=== PATIENT | female | born 1985 | race Caucasian/White ===

== ENCOUNTER 2022-01-30 10:45 | Emergency (ER) | payer OTHER, SELFPAY ==
[2022-01-30 10:52] VITALS: BP 129/83; PULSE 70; RESP 18; TEMP 36.7; O2SAT 100
--- NOTE | 2022-01-30 11:03 | ED.URI ---
HPI - URI/Sore Throat General Chief Complaint: Upper Respiratory Infection Stated Complaint: head rishabh,cough,wheezing Time Seen by Provider: 01/30/22 10:52 Source: patient and RN notes reviewed Mode of arrival: ambulatory Limitations: no limitations History of Present Illness HPI Narrative: 36-year-old female presented for complaint of sinus pressure and congestion worsening over the past 2 weeks. She been taking Sudafed and Mucinex, using Karval pot with minimal relief in symptoms. Pain is located behind the right eye, right upper teeth and ear. 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 Denies associated cough, shortness of breath, nausea, vomiting, diarrhea, fever or chills. MD elicited complaint: cough Related Data Home Medications Medication Instructions Recorded Confirmed alprazolam 1 mg PO DAILY PRN 01/30/22 01/30/22 atorvastatin 20 mg PO DAILY 01/30/22 01/30/22 fluoxetine 40 mg PO DAILY 01/30/22 01/30/22 linaclotide [Linzess] 72 mcg PO DAILY 01/30/22 01/30/22 Allergies Allergy/AdvReac Type Severity Reaction Status Date / Time No Known Allergies Allergy Unverified 01/30/22 10:59 Review of Systems Review of Systems: CONSTITUTIONAL: Endorses malaise, chills, sweats, fever EYES: Denies visual changes, redness, or discharge ENT: Reports rhinorrhea, congestion, sinus pain, otalgia, sore throat CARDIOVASCULAR: Denies chest pain, palpitations, edema RESPIRATORY: Reports cough, post nasal drainage. Denies dyspnea GASTROINTESTINAL: Denies abdominal pain, nausea, vomiting, diarrhea SKIN: Denies rash or itching MUSCULOSKELETAL: Endorses myalgia NEUROLOGIC: Denies headache Exam Narrative: GENERAL: Ill-appearing, nontoxic no acute distress. HEAD: Normocephalic EYES: PERRLA, conjunctivae clear ENT: Mucous membranes moist. TMs with dull light reflex bilaterally; no tragal tenderness. Oropharynx erythematous without lesions or exudate, no drooling, no hoarseness, no trismus, uvula midline. NECK: Supple. No lymphadenopathy CHEST: Clear to auscultation, breath sounds equal. No wheezing, rhonchi, rales, or stridor. No respiratory distress, speaks in full sentences. HEART: Regular rate and rhythm. No murmur heard. SKIN: Warm, dry, no rash. NEURO: Alert and oriented x3. PSYCH: Normal mood and affect Course Course Emergency Course: Patient is aware of diagnosis, understands and agrees to treatment plan. Anticipatory guidance given. Patient agrees to follow-up as directed and is aware of reasons to seek care at the emergency department. Portions of this record may have been created with voice recognition software Level of Care: Express Care Visit Vital Signs Vital signs: Vital Signs Temperature 98.1 F 01/30/22 10:52 Pulse Rate 70 01/30/22 10:52 Respiratory Rate 18 01/30/22 10:52 Blood Pressure 129/83 01/30/22 10:52 Pulse Oximetry 100 01/30/22 10:52 Temperature 98.1 F 01/30/22 10:52 Pulse Rate 70 01/30/22 10:52 Respiratory Rate 18 01/30/22 10:52 Blood Pressure 129/83 01/30/22 10:52 Pulse Oximetry 100 01/30/22 10:52 reviewed MDM - URI/Sore Throat MDM Narrative Medical decision making narrative: Presentation c/w bacterial sinusitis. No indication for covid or flu. No respiratory distress, otherwise relatively well appearing and nontoxic. Will discuss prompt follow up with PMD and strict return precautions. Differential Diagnosis Differential diagnosis: Likely upper respiratory infection, sinusitis and viral infection Discharge Plan Discharge Clinical Impression: Sinusitis Qualifiers: Sinusitis location: maxillary Chronicity: acute Recurrence: non-recurrent Qualified Code(s): J01.00 - Acute maxillary sinusitis, unspecified Patient Disposition: Home, Self-Care Condition: Stable Instructions: Antibiotic Form, Rhinosinusitis (ED) Additional Instructions: Take antibiotic as directed Recommend Flonase spray and Zyrtec
== END 2022-01-30 11:10 | disposition home or self-care (01) ==
PROVIDERS: Emergency Provider Nurse Practitioner Family; PCP Internal Medicine
DX: J01.00 Acute maxillary sinusitis, unspecified (principal); E78.00 Pure hypercholesterolemia, unspecified; J45.909 Unspecified asthma, uncomplicated; F41.9 Anxiety disorder, unspecified; F32.A Depression, unspecified
CPT/HCPCS: 99203; G0463

== ENCOUNTER 2023-04-18 19:26 | Emergency (ER) | payer OTHER, SELFPAY ==
[2023-04-18 19:31] VITALS: BP 117/94; PULSE 99; RESP 16; TEMP 36.5; O2SAT 100
--- NOTE | 2023-04-18 19:38 | ED.URI ---
HPI - URI/Sore Throat General Chief Complaint: Upper Respiratory Infection Stated Complaint: poss pink eye/throat Source: patient and RN notes reviewed Limitations: no limitations History of Present Illness HPI Narrative: Patient is a 37-year-old female who presents to the [facility] with multiple complaints. Patient states that she woke up this morning with left eye redness and drainage. She reports purulent drainage of the eye upon waking. Patient also reports sore throat for the past couple days. She also reports nasal congestion and a frequent nonproductive cough that is present at night. She denies recent fevers or chills. Denies chest pain or shortness of breath. Denies abdominal pain, nausea, vomiting, diarrhea. Related Data Home Medications Medication Instructions Recorded Confirmed alprazolam 1 mg tablet 1 mg PO DAILY PRN Anxiety 01/30/22 01/30/22 atorvastatin 20 mg tablet 20 mg PO DAILY 01/30/22 01/30/22 fluoxetine 40 mg capsule 40 mg PO DAILY 01/30/22 01/30/22 linaclotide 72 mcg capsule 72 mcg PO DAILY 01/30/22 01/30/22 (Linzess) hydrocodone 5 mg-acetaminophen 325 tablet 04/18/23 mg tablet Allergies Allergy/AdvReac Type Severity Reaction Status Date / Time No Known Allergies Allergy Unverified 01/30/22 10:59 Review of Systems Review of Systems: CONSTITUTIONAL: Denies fever, chills, or sweats. EYES: Denies visual changes. Reports left eye redness and drainage. ENT: Reports nasal congestion/drainage. Reports sore throat. CARDIOVASCULAR: Denies chest pain, palpitations, or edema. RESPIRATORY: Reports cough. Denies dyspnea. GASTROINTESTINAL: Denies abdominal pain, nausea, vomiting, or diarrhea. GENITOURINARY: Denies dysuria or hematuria. SKIN: Denies rash or itching. MUSCULOSKELETAL: Denies back pain, joint pain, or myalgia. NEUROLOGIC: Denies headache, numbness, or weakness. Pertinent positives per HPI. PMFSH Comments At the time of my signature, I reviewed and agree with the nursing past medical, surgical, social, and family history. There is no relevant family history pertinent to the patient complaint. Exam Narrative: GENERAL: This is a well-nourished, well-developed patient, in no apparent distress. HEAD: normocephalic, atraumatic. EYES: Sclera injected on the left. + drainage from the left eye. Vision is grossly intact. EARS: External ears normal, auditory canals clear and without drainage, TMs normal without perforation. Hearing grossly intact. NOSE: External nose lisseth. + congestion and rhinorrhea. THROAT: Mucous membranes moist. Oropharyngeal erythema. NECK: Neck supple, non-tender without lymphadenopathy, masses or thyromegaly. CARDIOVASCULAR: Regular rate and rhythm without murmurs, gallops, or rubs. RESPIRATORY: Clear to auscultation. Breath sounds equal bilaterally. No wheezes, rales, or rhonchi. GASTROINTESTINAL: Abdomen soft, non-tender, nondistended. Bowel sounds are active. No hepato-splenomegaly, or palpable masses. No guarding. SKIN: warm, intact with no suspicious lesions or rash, good texture and turgor. NEURO: awake, alert, and oriented to person, place and time. There were no obvious focal neurologic abnormalities. Course Course Level of Care: Express Care Visit Vital Signs Vital signs: Vital Signs Temperature 97.7 F 04/18/23 19:31 Pulse Rate 99 04/18/23 19:31 Respiratory Rate 16 04/18/23 19:31 Blood Pressure 117/94 H 04/18/23 19:31 Pulse Oximetry 100 04/18/23 19:31 Oxygen Delivery Room Air 04/18/23 19:31 Temperature 97.7 F 04/18/23 19:31 Pulse Rate 99 04/18/23 19:31 Respiratory Rate 16 04/18/23 19:31 Blood Pressure 117/94 H 04/18/23 19:31 Pulse Oximetry 100 04/18/23 19:31 Oxygen Delivery Room Air 04/18/23 19:31 Reviewed MDM - URI/Sore Throat MDM Narrative Medical decision making narrative: Your exam today shows Conjunctivitis, You have been given a prescription for eye drops. Use the eye drops as instru
== END 2023-04-18 19:56 | disposition home or self-care (01) ==
PROVIDERS: Emergency Provider Nurse Practitioner
DX: H10.32 Unspecified acute conjunctivitis, left eye (principal)
CPT/HCPCS: 87081; 87880; 99213; G0463